=== PATIENT | male | born 1975 | race Hispanic/Latino ===

== ENCOUNTER 2022-03-25 13:38 | Emergency (ER) | payer SELFPAY ==
[~2022-03-25] VITALS: Ht 175.3 cm; Wt 73.0 kg
[2022-03-25 13:48] VITALS: BP 154/98
[2022-03-25 14:01] VITALS: BP 149/103
[2022-03-25 14:16] VITALS: BP 126/93
[2022-03-25 14:45] VITALS: BP 138/99
[2022-03-25 15:46] VITALS: BP 204/176
[2022-03-25] MEDS ORDERED: CEPHALEXIN500 M1 PO (15:46)
[2022-03-25 16:38] VITALS: BP 134/91
== END 2022-03-25 16:59 | disposition home or self-care (01) | DRG 605 ==
LOC: ED 13:38
PROC: 0HQGXZZ Repair Left Hand Skin, External Approach (ICD-10-PCS; principal; 2022-03-25)
DX: S61.012A Laceration without foreign body of left thumb without damage to nail, initial encounter (principal); W27.0XXA Contact with workbench tool, initial encounter; Y93.89 Activity, other specified; Y92.009 Unspecified place in unspecified non-institutional (private) residence as the place of occurrence of the external cause